=== PATIENT | male | born 1985 | race American Indian/Alaskan Native ===

== ENCOUNTER 2016-12-20 09:01 | Emergency (ER) | payer SELFPAY ==
[2016-12-20 09:14] VITALS: BP 124/75
[2016-12-20 10:07] LABS: Bilirubin,Urine NEG (Negative); Blood,Urine NEG (Negative); Ketones,Urine NEG (Negative); Leukocyte Esterase,Urine TR (Negative); Mucus,Urine FEW /HPF; Nitrite,Urine NEG (Negative); Protein,Urine <15 mg/dL mg/dL (Negative); Urobilinogen,Urine < 2.0 mg/dL (<2.0)
[2016-12-20] MEDS ORDERED: ZITHROMAX PO ONE (10:17)
[2016-12-20] MEDS ORDERED: ROCEPHIN IM ONE (10:17)
[2016-12-20] MEDS ORDERED: XYLOCAINE 1% MPF 5 mL INFILTRATI ONE (10:17)
--- NOTE | 2016-12-20 17:33 | Emergency Department Report ---
Entered by RON MEZA, acting as scribe for MARCOS BURK NP. ED Male HPI - General Chief complaint: Urogenital-Male Stated complaint: POSS STD Time Seen by Provider: 12/20/16 09:32 Source: patient Mode of arrival: Ambulatory Limitations: No Limitations - History of Present Illness Initial comments: This is 31 y/o male, nontoxic, well nourished in appearance, no acute signs of distress with no significant PMHx presents with c/o dysuria that began 2 days ago. Rates severity a 3/10, which he describes as burning in quality. Aggravated with urination and alleviated with nothing. Patient reports associated white penile discharge, but he denies abdominal pain, low back pain, hematuria, testicle swelling/pain, scrotum swelling/pain, urgency, frequency, fever, chills, chest pain, SOB, BULLARD or dizziness, numbness, tingling. Patient states he was exposed to an STD and notes he experienced similar symptoms in the past, which he was diagnosed with an STD. Patient states he had sexual intercourse without protection with a known partner 8 days ago, who tested positive for Gonorrhea and Chlamydia. Patient notes that his partner was recently treated. NKDA. RIVERS Complaint: penile discharge (white), dysuria Onset/Timin -: days(s) Location: penis Radiation: none Severity: mild Severity scale (0 -10): 3 Quality: burning Consistency: constant Improves with: none Worsens with: urination new sexual partner denies other symptoms, dysuria. denies: discharge, swelling, mass, rash, urinary retention, blood in urine, fever, nausea/vomiting, incontinence - Related Data Sexually active: Yes (last time without protection was 8 days ago) Previous Rx's Medication Instructions Recorded Last Taken Type Sulfamethoxazole/Trimethoprim 1 each PO BID #20 tablet 12/20/16 Unknown Rx [Bactrim DS TAB] Allergies Allergy/AdvReac Type Severity Reaction Status Date / Time No Known Allergies Allergy Verified 12/20/16 09:14 ED Review of Systems Comment: All other systems reviewed and negative Constitutional: denies: chills, fever Eyes: denies: eye pain, eye discharge, vision change ENT: denies: ear pain, throat pain Respiratory: denies: cough, orthopnea, shortness of breath, SOB with exertion, SOB at rest, stridor, wheezing Cardiovascular: denies: chest pain, palpitations, dyspnea on exertion, orthopnea , edema, syncope, paroxysmal nocturnal dyspnea Endocrine: no symptoms reported Gastrointestinal: denies: abdominal pain, nausea, vomiting, diarrhea Genitourinary: dysuria, discharge (white). denies: urgency, frequency, hematuria, testicular pain, testicular mass Musculoskeletal: denies: back pain, joint swelling, arthralgia Skin: denies: rash, lesions Neurological: denies: headache, weakness, paresthesias Psychiatric: denies: anxiety, depression Hematological/Lymphatic: denies: easy bleeding, easy bruising ED Past Medical Hx - Past Medical History Previous Medical History?: No - Surgical History Past Surgical History?: Yes Additional Surgical History: bilateral knees - Social History Smoking Status: Never Smoker Substance Use Type: None - Medications Home Medications: Home Medications Medication Instructions Recorded Confirmed Last Taken Type Sulfamethoxazole/Trimethoprim 1 each PO BID #20 tablet 12/20/16 Unknown Rx [Bactrim DS TAB] ED Physical Exam - General Limitations: No Limitations General appearance: alert, in no apparent distress - Head Head exam: Present: atraumatic, normocephalic - Eye Eye exam: Present: normal appearance, PERRL, EOMI Pupils: Present: normal accommodation - ENT ENT exam: Present: normal exam, normal orophraynx, mucous membranes moist, TM's normal bilaterally, normal external ear exam - Neck Neck exam: Present: normal inspection, full ROM. Absent: tenderness, meningismus, lymphadenopathy, thyromegaly - Respiratory Respiratory exam: Present: normal lung sounds bilaterally. Absent: respiratory distress, wheezes, rales, rhonchi, stridor, chest wall tenderness, accessory muscle use, decreased breath sounds - Cardiovascular Cardiovascular Exam: Present: regular rate, normal rhythm, normal heart sounds. Absent: systolic murmur, diastolic murmur, rubs, gallop - GI/Abdominal GI/Abdominal exam: Present: soft, normal bowel sounds. Absent: distended, tenderness, guarding, rebound, rigid - exam: Present: other (deferred) - Extremities Exam Extremities exam: Present: normal inspection, full ROM, normal capillary refill. Absent: tenderness, pedal edema, joint swelling, calf tenderness - Back Exam Back exam: Present: normal inspection, full ROM. Absent: tenderness, CVA tenderness (R), CVA tenderness (L), muscle spasm, paraspinal tenderness, vertebral tenderness, rash noted - Neurological Exam Neurological exam: Present: alert, oriented X3, CN II-XII intact, normal gait, reflexes normal. Absent: motor sensory deficit - Psychiatric Psychiatric exam: Present: normal affect, normal mood - Skin Skin exam: Present: warm, dry, intact. Absent: rash ED Course Vital Signs 12/20/16 09:11 Temperature 97.9 F Pulse Rate 70 Respiratory 16 Rate Blood Pressure 124/75 O2 Sat by Pulse 96 Oximetry - Reevaluation(s) Reevaluation #1: 12/20/16 10:17 Patient is able to speak in full sentences with no signs of distress. ED Medical Decision Making - Medical Decision Making ED course: This is a 31-year-old male presents with possible exposure to STD and UTI. 1- patient was examined myself. Patient received Rocephin and azithromycin empirically for gonorrhea and chlamydia treatment in the ED 2- UA has been obtained with elevated white blood cell count and trace of leukocytes patient be treated with Bactrim for 10 days. 3- patient was instructed to return 3-5 days to medical records to obtain gonorrhea chlamydia results 4- At time time of discharge, the patient does not seem toxic or ill in appearance. No acute signs of distress noted. Patient agrees to discharge treatment plan of care. No further questions noted by the patient. ED Disposition Clinical Impression: Possible exposure to STD UTI (urinary tract infection) Qualifiers: Urinary tract infection type: site unspecified Hematuria presence: without hematuria Qualified Code(s): N39.0 - Urinary tract infection, site not specified Disposition: TO HOME OR SELFCARE Is pt being admited?: No Does the pt Need Aspirin: No Condition: Stable Instructions: Safe Sex (ED), Urinary Tract Infection in Men (ED), Sulfamethoxazole/Trimethoprim (By mouth) Additional Instructions: Follow-up with your primary care doctor in 3-5 days or symptoms worsen or continue return to emergency room as soon as possible. Return in 3-5 days to medical records to obtain the results of gonorrhea/ chlamydia. Take full course of antibiotics for your UTI. Prescriptions: Sulfamethoxazole/Trimethoprim [Bactrim DS TAB] 1 each PO BID #20 tablet Referrals: ZACK VILA MD [Primary Care Provider] - 3-5 Days PILLO PINZON MD [Staff Physician] - 3-5 Days [facility] [Outside] - 3-5 Days [facility] [Outside] - 3-5 Days Forms: Work/School Release Form(ED) This documentation as recorded by the DERRICK arevalo JASMINE,accurately reflects the service I personally performed and the decisions made by me,MARCOS BURK, PARDEEP.
== END 2016-12-20 11:01 | disposition home or self-care (01) ==
LOC: ED 09:01
DX: N39.0 Urinary tract infection, site not specified (principal)
CPT/HCPCS: 81001; 87591; 96372; 99283; J0696